=== PATIENT | female | born 2000 | race African-American/Black ===

== ENCOUNTER 2020-05-17 12:49 | Outpatient (REF) | payer OTHER, SELFPAY | END 2020-05-17 12:50 | disposition home or self-care (01) | LOC: HO.LAB 12:49 | PROVIDERS: Visit Provider Internal Medicine | DX: Z20.828 Contact with and (suspected) exposure to other viral communicable diseases (principal) | CPT/HCPCS: U0003 ==

== ENCOUNTER 2020-07-04 10:55 | Outpatient (REF) | payer OTHER, SELFPAY | END 2020-07-04 10:56 | disposition home or self-care (01) | LOC: HO.LAB 10:55 | PROVIDERS: Visit Provider Internal Medicine | DX: Z20.822 Contact with and (suspected) exposure to COVID-19 (principal) | CPT/HCPCS: 36415; C9803; U0003 ==

== ENCOUNTER 2020-07-14 14:41 | Emergency (ER) | payer OTHER, SELFPAY ==
[2020-07-14 14:50] VITALS: BP 102/58; PULSE 80; RESP 18; TEMP 37.1; O2SAT 100; BMI 30.2
[2020-07-14 15:24] LABS: Glucose Urine UA NEG (NEG); Leukocyte Esterase Urine NEG (NEG); Nitrite Urine NEG (NEG); Specific Gravity - Urine >= 1.030 (1.005-1.025); Urine Blood 1+ (NEG); Urine Ketones NEG (NEG); Urine Protein NEG (NEG-TRACE)
[2020-07-14 15:28] LABS: Appearance Urine CLOUDY; Color Urine YELLOW; UPreg QC Valid YES; Urine Pregnancy NEGATIVE (NEGATIVE)
[2020-07-14 15:34] LABS: Bacteria Urine 1+ /LPF; Mucus Urine 1+ /LPF; RBC Urine 0-2 /HPF (0); Squamous Epithelial Cell Urine 2+ /LPF
[2020-07-14 15:49] LABS: MANUAL DIFF FLAG NO
[2020-07-14 15:52] LABS: Basophils Percent Auto 0.3 % (0-2); Eosinophils Absolute Auto 0.1 X10*3/uL (0.0-0.4); Eosinophils Percent Auto 0.5 % (0-4); Hematocrit 37.8 % (37-47); Hemoglobin 11.8 g/dl (12.0-16.0); Imm Gran Abs Auto 0.03 X10*3/uL (0.00-0.03); Imm Gran Pct Auto 0.3 % (0.0-0.4); Lymphocytes Absolute Auto 2.6 X10*3/uL (1.2-4.9); Lymphocytes Percent Auto 24.9 % (20-40); Mean Corpuscular HGB Conc 31.2 g/dl (31.0-35.0); Mean Corpuscular Hemoglobin 25.6 pg (27.0-33.0); Mean Platelet Volume 11.4 fL (9.4-12.3); Monocytes Absolute Auto 0.5 X10*3/uL (0.1-1.2); Monocytes Percent Auto 4.7 % (2-11); Neutrophils Absolute Auto 7.3 X10*3/uL (2.0-8.3); Neutrophils Percent Auto 69.3 % (45-73); Platelet Count 286 X10*3/uL (160-400); Red Blood Count 4.61 X10*6/uL (4.20-5.50); Red Cell Distribution Width 13.2 % (11.0-16.0); White Blood Count 10.6 X10*3/uL (4.8-10.8)
[2020-07-14 16:22] LABS: Alanine Aminotransferase 16 U/L (0-31); Albumin Level 4.1 g/dL (3.5-5.0); Alkaline Phosphatase 98 U/L (39-117); Anion Gap 11 (12-20); Aspartate Amino Transferase 22 U/L (5-31); Bilirubin Total 0.9 mg/dL (0.0-1.0); Blood Urea Nitrogen 9 mg/dL (9-16); Calcium 8.4 mg/dL (8.4-10.2); Carbon Dioxide 25 mmol/L (22-29); Chloride 108 mmol/L (96-108); Creatinine Clr Calc Pharmacy 83.5; Estimated Glomerular Filt Rate > 60; Glucose Random 85 mg/dL (60-115); Lipase 11 U/L (8-78); Potassium 4.1 mmol/l (3.3-5.1); Sodium 140 mmol/L (135-145); Total Protein 7.1 g/dL (6.5-8.0)
--- NOTE | 2020-07-14 16:57 | ED.ABDPAIN ---
HPI - Abdominal Pain General Chief Complaint: Abdominal Pain Stated Complaint: stomach issues Time Seen by Provider: 07/14/20 16:47 Source: patient Mode of arrival: ambulatory Limitations: no limitations History of Present Illness HPI narrative: 19 y/o female with no medical history is presenting with intermittent epigastric pain for the last 4 days. Worse with food and when she 1st wakes up in the morning. She has been taking TUMS without relief. She denies nausea, vomiting, diarrhea, fever, chills, SOB, fever, chest pain or cough. She denies bloody BM's. She has had normal periods, denies . MD elicited complaint: abdominal pain Pertinent past history: none Onset (ago): day(s) (4) Pain Consistency: intermittent and now resolved Location: epigastric Related Data Previous Rx's Medication Instructions Recorded omeprazole 40 mg PO DAILY 14 Days #14 cap 07/14/20 Allergies Allergy/AdvReac Type Severity Reaction Status Date / Time shrimp [SHRIMP] Allergy Unknown ITCHING Unverified 03/03/20 16:42 Review of Systems Review of Systems Constitutional: No Fever, No Chills ENT/Mouth: No sore throat, No Rhinorrhea, No Swallowing Difficulty Cardiovascular: No Chest Pain, No SOB Respiratory: No Cough, No Sputum Gastrointestinal: No Nausea, No Vomiting, No Diarrhea, +abdominal Pain Genitourinary: No Dysuria, No Urinary Frequency, No Hematuria Musculoskeletal: No Myalgias Neuro: No Weakness, No Numbness, No Dizziness, No Headache Heme/Lymph: No Bruising, No Lymphadenopathy Endocrine: No Polyuria, No Polydipsia Physical Exam Vital Signs: Vital Signs: Last Vital Signs Temp 98.7 F 07/14/20 14:50 Pulse 80 07/14/20 14:50 Resp 18 07/14/20 14:50 BP 102/58 L 07/14/20 14:50 Pulse Ox 100 07/14/20 14:50 Body Mass Index 30.2 Appearance: Alert. Oriented X3. No acute distress. Eyes: Pupils equal, round and reactive to light. ENT: Pharynx normal. Neck: Normal inspection. Neck supple. CVS: Normal heart rate and rhythm. Pulses normal. Respiratory: No respiratory distress. Breath sounds normal. Abdomen: Soft and nontender. +BS x4, no rebound or guarding. Skin: Skin warm and dry. Normal skin color. Normal skin turgor. No rashes. Extremities: No lower extremity edema. Neuro: Oriented X 3. No motor deficit. No sensory deficit. Course Course Course Narrative: 19 y/o healthy female presenting with intermittent epigastric pain x4 days. Labs are unremarkable. She has NO pain at this time. Exam is benign. She is likely experiencing gastritis. Will start on PPI and have her f/u with GI for further management. She has been counseled on gastritis and management. She is stable for discharge. Patient agrees with plan. MDM - Abdominal Pain Differential Diagnosis Differential diagnosis: Likely abdominal pain, constipation, gastroenteritis, gastritis, pancreatitis and peptic ulcer disease Lab Data Result diagrams: 07/14/20 15:43 07/14/20 15:43 Labs: Lab Results 07/14/20 07/14/20 07/14/20 Range/Units 15:10 15:43 15:43 WBC 10.6 (4.8-10.8) X10*3/uL RBC 4.61 (4.20-5.50) X10*6/uL Hgb 11.8 L (12.0-16.0) g/dl Hct 37.8 (37-47) % MCV 82.0 (80-98) fL MCH 25.6 L (27.0-33.0) pg MCHC 31.2 (31.0-35.0) g/dl RDW 13.2 (11.0-16.0) % Plt Count 286 (160-400) X10*3/uL MPV 11.4 (9.4-12.3) fL Immature Gran % (Auto) 0.3 (0.0-0.4) % Neut % (Auto) 69.3 (45-73) % Lymph % (Auto) 24.9 (20-40) % [place] % (Auto) 4.7 (2-11) % Eos % (Auto) 0.5 (0-4) % Baso % (Auto) 0.3 (0-2) % Lymph # (Auto) 2.6 (1.2-4.9) X10*3/uL [place] # (Auto) 0.5 (0.1-1.2) X10*3/uL Eos # (Auto) 0.1 (0.0-0.4) X10*3/uL Baso # (Auto) 0.0 (0.0-0.2) X10*3/uL Abs Immat Gran (auto) 0.03 (0.00-0.03) X10*3/uL Absolute Neuts (auto) 7.3 (2.0-8.3) X10*3/uL Absolute Nucleated RBC 0.000 (0.0-0.012) X10*3/uL Nucleated RBC % (auto) 0.0 (0.0-0.2) /100WBC Hold Blue Top SEE NOTE Sodium (135-145) mmol/L Potassium (3.3-5.1) mmol/l Chloride (96-108) mmol/L Carbon Dioxide (22-29) mmol/L Anion Gap (12-20) BUN (9-16) mg/dL Creatinine (0.5-1.4) mg/dL Estim Creat Clear Calc Estimated GFR Random Glucose (60-115) mg/dL Calcium (8.4-10.2) mg/dL Total Bilirubin (0.0-1.0) mg/dL AST (5-31) U/L ALT (0-31) U/L Alkaline Phosphatase (39-117) U/L Total Protein (6.5-8.0) g/dL Albumin (3.5-5.0) g/dL Lipase (8-78) U/L Urine Color YELLOW Urine Appearance CLOUDY Urine pH 6.0 (5.0-8.0) Ur Specific [place] >= 1.030 H (1.005-1.025) Urine Protein NEG (NEG-TRACE) MG/DL Urine Glucose (UA) NEG (NEG) MG/DL Urine Ketones NEG (NEG) MG/DL Urine Blood 1+ H (NEG) Urine Nitrite NEG (NEG) Ur Leukocyte Esterase NEG (NEG) Urine RBC 0-2 (0) /HPF Urine WBC 1-4 (0-4) /HPF Ur Squamous Epith Cells 2+ /LPF Urine Bacteria 1+ /LPF Urine Mucus 1+ /LPF Urine Test NEGATIVE (NEGATIVE) 07/14/20 Range/Units 15:43 WBC (4.8-10.8) X10*3/uL RBC (4.20-5.50) X10*6/uL Hgb (12.0-16.0) g/dl Hct (37-47) % MCV (80-98) fL MCH (27.0-33.0) pg MCHC (31.0-35.0) g/dl RDW (11.0-16.0) % Plt Count (160-400) X10*3/uL MPV (9.4-12.3) fL Immature Gran % (Auto) (0.0-0.4) % Neut % (Auto) (45-73) % Lymph % (Auto) (20-40) % [place] % (Auto) (2-11) % Eos % (Auto) (0-4) % Baso % (Auto) (0-2) % Lymph # (Auto) (1.2-4.9) X10*3/uL [place] # (Auto) (0.1-1.2) X10*3/uL Eos # (Auto) (0.0-0.4) X10*3/uL Baso # (Auto) (0.0-0.2) X10*3/uL Abs Immat Gran (auto) (0.00-0.03) X10*3/uL Absolute Neuts (auto) (2.0-8.3) X10*3/uL Absolute Nucleated RBC (0.0-0.012) X10*3/uL Nucleated RBC % (auto) (0.0-0.2) /100WBC Hold Blue Top Sodium 140 (135-145) mmol/L Potassium 4.1 (3.3-5.1) mmol/l Chloride 108 (96-108) mmol/L Carbon Dioxide 25 (22-29) mmol/L Anion Gap 11 L (12-20) BUN 9 (9-16) mg/dL Creatinine 0.74 (0.5-1.4) mg/dL Estim Creat Clear Calc 83.5 Estimated GFR > 60 Random Glucose 85 (60-115) mg/dL Calcium 8.4 (8.4-10.2) mg/dL Total Bilirubin 0.9 (0.0-1.0) mg/dL AST 22 (5-31) U/L ALT 16 (0-31) U/L Alkaline Phosphatase 98 (39-117) U/L Total Protein 7.1 (6.5-8.0) g/dL Albumin 4.1 (3.5-5.0) g/dL Lipase 11 (8-78) U/L Urine Color Urine Appearance Urine pH (5.0-8.0) Ur Specific [place] (1.005-1.025) Urine Protein (NEG-TRACE) MG/DL Urine Glucose (UA) (NEG) MG/DL Urine Ketones (NEG) MG/DL Urine Blood (NEG) Urine Nitrite (NEG) Ur Leukocyte Esterase (NEG) Urine RBC (0) /HPF Urine WBC (0-4) /HPF Ur Squamous Epith Cells /LPF Urine Bacteria /LPF Urine Mucus /LPF Urine Test (NEGATIVE) Critical Care Time Critical Care Time Critical Care Time: No Discharge Plan Discharge Clinical Impression: Gastritis Qualifiers: Gastritis type: unspecified gastritis Chronicity: acute Gastritis bleeding: without bleeding Qualified Code(s): K29.00 - Acute gastritis without bleeding Patient Disposition: Home, Self-Care Instructions: Gastritis (ED) Additional Instructions: Your lab workup today was unremarkable. Take the prescribed medical for probable gastritis. Take Pepto Bismol and TUMS as needed. Avoid spicy foods and food high in acid. Avoid alcohol and NSAIDs like Motrin and Aleve. Follow up with the GI doctor for further workup. Prescriptions: New omeprazole 40 mg capsule,delayed release(DR/EC) 40 mg PO DAILY 14 Days Qty: 14 RF: 0 Referrals: Malcolm Vargas [Physician] - 2 days (gastritis ) [facility] Past Medical History Attestation statement: The following information was validated with the patient. Medical History No known health problems Social History Social History Advance Directives: No Advance Directives Information Provided: Yes
== END 2020-07-14 17:09 | disposition home or self-care (01) ==
PROVIDERS: Emergency Provider Emergency Medicine
DX: K29.00 Acute gastritis without bleeding (principal)
CPT/HCPCS: 36415; 80053; 81001; 81025; 83690; 85025; 99283

== ENCOUNTER 2020-08-30 12:46 | Outpatient (REF) | payer OTHER, SELFPAY | END 2020-08-30 12:47 | disposition home or self-care (01) | LOC: HO.LAB 12:46 | PROVIDERS: Visit Provider Internal Medicine | DX: Z20.822 Contact with and (suspected) exposure to COVID-19 (principal) | CPT/HCPCS: 36415; C9803; U0003; U0005 ==

== ENCOUNTER 2021-06-17 10:57 | Outpatient (REF) | payer OTHER, SELFPAY ==
[2021-06-17 11:32] LABS: Binax Internal Control QC Valid; Binax Lot number: 9864; Binax Now Covid-19 Ag Positive (Negative)
== END 2021-06-17 10:58 | disposition home or self-care (01) ==
LOC: HO.LAB 10:57
PROVIDERS: Visit Provider Internal Medicine
DX: Z20.822 Contact with and (suspected) exposure to COVID-19 (principal)
CPT/HCPCS: 36415; C9803

== ENCOUNTER 2022-04-24 18:21 | Emergency (ER) | payer OTHER, SELFPAY ==
[2022-04-24 20:23] VITALS: BP 113/63; PULSE 61; RESP 16; TEMP 36.9; O2SAT 99; BMI 30.2
--- NOTE | 2022-04-24 23:00 | ED_ITS ---
HPI - Dental/Oral General Chief complaint: Dental/Oral Stated complaint: Dental swelling Time Seen by Provider: 04/24/22 22:57 Source: patient Mode of arrival: ambulatory Limitations: no limitations History of Present Illness HPI Narrative: 21-year-old female here with left-sided facial swelling and pain for 3 days. No fevers or chills. Related Data Previous Rx's Medication Instructions Recorded omeprazole 40 mg capsule,delayed 40 mg PO DAILY 14 days #14 caps 07/14/20 release clindamycin HCl 150 mg capsule 150 mg PO TID #21 caps 04/24/22 Allergies Allergy/AdvReac Type Severity Reaction Status Date / Time shrimp [SHRIMP] Allergy Unknown ITCHING Unverified 03/03/20 16:42 Review of Systems Review of Systems: Yes all other systems are reviewed and are negative Constitutional: Constitutional: Reports no additional constitutional complaints, Denies body ache(s), Denies chills, Denies fever(s), Denies headache(s) and Denies weakness Eyes: Eyes: Reports no additional eye complaints and Denies change in vision ENT: Reports system reviewed and no additional complaints, except as documented, Denies dizziness, Reports facial pain, Denies headache(s), Denies nasal congestion, Denies nasal discharge and Denies neck pain Cardiovascular: Cardiovascular: Reports no additional cardiovascular complaints, Denies chest pain, Denies leg edema and Denies dyspnea Respiratory: Respiratory: Reports no additional respiratory complaints, Denies cough and Denies dyspnea Gastrointestinal: Gastrointestinal: Reports no additional gastrointestinal complaints, Denies abdominal pain, Denies diarrhea, Denies nausea and Denies vomiting Genitourinary: Genitourinary: Reports no additional female genitourinary complaints and Denies urinary incontinence Musculoskeletal: Musculoskeletal: Reports no additional musculoskeletal complaints, Denies back pain, Denies arthralgias, Denies joint swelling, Denies neck pain, Denies numbness and Denies tingling Integumentary/Breasts: Skin/Breast: Reports system reviewed and no additional complaints, except as docu and Denies rash Neurologic: Reports system reviewed and no additional complaints, except as documented, Denies Abnormal speech present, Denies dizziness, Denies headache(s), Denies numbness, Denies tingling and Denies weakness [facility] Past Medical History Attestation statement: The following information was validated with the patient. Source: old records reviewed and nursing notes reviewed Medical History No known health problems Physical Exam Vital Signs: Vital Signs: Last Vital Signs Temp 98.5 F 04/24/22 20:23 Pulse 61 04/24/22 20:23 Resp 16 04/24/22 20:23 BP 113/63 04/24/22 20:23 Pulse Ox 99 04/24/22 20:23 O2 Del Method 04/24/22 20:23 BMI result Body Mass Index 30.2 Const: General: cooperative, healthy appearing, comfortable and no acute di stress Orientation/consciousness: patient oriented x3 Limitations: no limitations HEENT: Other: No trismus. Mild left facial swelling over the left upper dental region. To the gum line there is redness, swelling and discomfort with no palpable abscess. Head: Yes normal to inspection Ears: hearing grossly normal bilaterally and TM's normal bilaterally General nose exam: Normal external nose present Face and sinus: Yes normal facial exam Mouth: Normal oral and palatal mucosa present Throat: Yes posterior oropharynx normal, Yes tonsils normal and Yes uvula midline Eyes: General: appearance normal, both eyes and all related structures Pupils: Equal, round and reactive pupils present Neck: Neck: Yes normal visual inspection, Yes full ROM, Yes no lymphadenopathy and Yes no meningeal signs Chest: Chest palpation & inspection: normal inspection of the chest Resp: Effort & Inspection: normal respiratory effort Auscultation: clear to auscultation bilaterally Cardio: Rate: regular rate Rhythm: regular rhythm Peripheral pulses: Peripheral pulses 2+ throughout GI: Inspection: Yes normal to inspection Palpation (GI): Soft to palpation and nontender Auscultation: normal bowel sounds Back/Spine/Pelvis: Thoracic/Lumbar Spine: thoracic and lumbar spine normal to inspection Skin: General skin exam: no rashes or lesions noted Neuro: General: patient oriented x3, no meningeal signs, no focal motor deficits and normal sensation to monofilament Cranial nerves: Yes Equal, round and reactive pupils present Cognition (Neuro): normal cognition Speech: No Abnormal speech present Gait exam (Neuro): Normal gait present Motor exam (neuro): 5/5 motor strength present throughout Extrem: General: Yes normal to inspection MDM - Dental/Oral MDM Narrative Medical decision making narrative: 21-year-old female here with swelling, redness to the left upper gum line with some local left-sided facial swelling. No obvious abscess. Likely some mild cellulitis secondary gum infection. Patient placed on oral antibiotics. Recommend saltwater gargles, soft foods, Motrin or Tylenol as needed. Reviewed worrisome signs and symptoms of when to return to the emergency room. Comfortable discharge home. Medical Records Attestation: I reviewed the patient's medical records. Lab Data Attestation: I reviewed the patient's lab results. Discharge Plan Discharge Clinical Impression: Dental infection Patient Disposition: Home, Self-Care Instructions: Dental Abscess (ED) Additional Instructions: Saltwater gargle Motrin or Tylenol for any pain or fever Soft food You may consider topical Orajel Avoid smoking Follow-up with dentist Prescriptions: New clindamycin HCl 150 mg capsule 150 mg PO TID Qty: 21 0RF No Action omeprazole 40 mg capsule,delayed release(DR/EC) 40 mg PO DAILY 14 Days Qty: 14 0RF
== END 2022-04-24 23:29 | disposition home or self-care (01) ==
PROVIDERS: Emergency Provider Emergency Medicine
DX: K04.7 Periapical abscess without sinus (principal)
CPT/HCPCS: 99282; 99283

== ENCOUNTER 2022-10-17 15:59 | Emergency (ER) | payer OTHER, SELFPAY ==
[2022-10-17 16:36] VITALS: BP 93/29; PULSE 67; RESP 18; TEMP 36.6; O2SAT 98; BMI 29.7
--- NOTE | 2022-10-17 18:34 | PC.NURSE ---
This RN at bedside for Tetanus. Pt reports recent Tetanus within 2 years.
--- NOTE | 2022-10-17 19:43 | ED.GENADULT ---
HPI - General Adult General Chief complaint: Wound/Laceration Stated complaint: thumb lac w/ megan blade Time Seen by Provider: 10/17/22 19:33 Source: patient, RN notes reviewed and old records reviewed Mode of arrival: ambulatory Limitations: no limitations History of Present Illness HPI narrative: 22 year old female presents for evaluation of laceration to the left thumb. Patient reports that she accidentally cut her left thumb with a ?megan knife. ? She had previously told the nurse that her tetanus was 2 years ago but she believes this was incorrect and feels that she needs her tetanus updated She denies any other injuries This laceration happened a few hours ago Bleeding is controlled Related Data Previous Rx's Medication Instructions Recorded omeprazole 40 mg capsule,delayed 40 mg PO DAILY 14 days #14 caps 07/14/20 release clindamycin HCl 150 mg capsule 150 mg PO TID #21 caps 04/24/22 Allergies Allergy/AdvReac Type Severity Reaction Status Date / Time shrimp [SHRIMP] Allergy Unknown ITCHING Verified 10/17/22 16:39 Review of Systems Integumentary/Breasts: Comments: Laceration to left thumb PMFSH Past Medical History Medical History No known health problems Social History Social History Advance Directives: No Advance Directives Information Provided: No Physical Exam ED Vital Signs: Vital Signs - 24 hr 10/17/22 16:36 Temperature 98 F Pulse Rate 67 Respiratory Rate 18 Blood Pressure 93/29 L Pulse Oximetry 98 Oxygen Delivery Method Room Air BMI result Body Mass Index 29.7 Const General: healthy appearing, comfortable, no acute distress, alert and awake Nutritional Appearance: well nourished Orientation/consciousness: patient oriented x3 Skin Other: 2 cm partial-thickness linear laceration to the ulnar side of the left thumb abutting the nail plate General skin exam: no rashes or lesions noted and elasticity normal Neuro General: patient oriented x3 Cranial nerves: Yes Bilaterally intact EOM present Cognition (Neuro): normal cognition Medications Administered Discontinued Medications Generic Name Dose Route Start Last Admin Trade Name Freq PRN Reason Stop Dose Admin Diphtheria/Tetanus/Acell Pertussis 0.5 ml 10/17/22 17:55 10/17/22 18:41 Diphth,Pertus(Acell),Tet Adult 0.5 Ml Syringe IM 10/17/22 17:56 Not Given .ONCE ONE Lidocaine HCl 2 ml 10/17/22 19:42 10/17/22 19:57 Lidocaine Hcl 1 % Mpf 2 Ml Vial INFILTRATI 10/17/22 19:43 2 ml ONCE ONE Administration Procedures Laceration Laceration 1: Site: hand (left thumb) Side (If applicable): left Size (cm): 2 Description: linear Depth: simple, single layer Local Anesthetic: lidocaine 1% Amount of anesthesia used (mL): 1 Skin layer closed with: nylon Size (cm): 5-0 Number of sutures: 2 Technique: simple, interrupted Medical Decision Making Medical Decision Making MDM Narrative: Patient has a small laceration that will require couple of sutures to close. Tetanus will be updated. Will clean the wound prior to closure. Differential Diagnosis Laceration Skin tear Puncture wound Abrasion Discharge Plan Discharge Clinical Impression: Laceration of left thumb Patient Disposition: Home, Self-Care Instructions: Finger Laceration (ED) Additional Instructions: Your sutures can be removed in 7-10 days Keep the area clean and dry, but you may apply topical antibiotic Your tetanus shot was updated today Prescriptions: No Action omeprazole 40 mg capsule,delayed release(DR/EC) 40 mg PO DAILY 14 Days Qty: 14 0RF clindamycin HCl 150 mg capsule 150 mg PO TID Qty: 21 0RF
[2022-10-17] MEDS: Lidocaine HCl 1 % MPF 2 ML VIAL INFILTRATI (19:57)
== END 2022-10-17 20:19 | disposition home or self-care (01) ==
PROVIDERS: Emergency Provider Internal Medicine
DX: S61.012A Laceration without foreign body of left thumb without damage to nail, initial encounter (principal)
CPT/HCPCS: 12001; 99283; 99284

== ENCOUNTER 2022-12-17 16:01 | Emergency (ER) | payer OTHER, SELFPAY ==
[2022-12-17 16:03] VITALS: BP 104/50; PULSE 65; RESP 18; TEMP 36.8; O2SAT 99; BMI 27.9
--- NOTE | 2022-12-17 16:07 | ED.GENADULT ---
HPI - General Adult General Chief complaint: Headache Stated complaint: left sided headache Time Seen by Provider: 12/17/22 22:23 Source: patient, RN notes reviewed and old records reviewed Mode of arrival: ambulatory Limitations: no limitations History of Present Illness HPI narrative: 22-year-old female presents for left-sided headache. Patient reports that she gets headaches approximately once a month This feels similar to her previous headaches but seems to be worse in intensity The pain radiates to her left ear Patient reports that headache started 2 days ago She reports associated nausea but no vomiting Denies any trauma to the head or neck She has ibuprofen and Tylenol without any improvement in her headaches today Patient reports that she is taking ?an old antibiotic that was left over from a tooth infection. ? Related Data Previous Rx's Medication Instructions Recorded omeprazole 40 mg capsule,delayed 40 mg PO DAILY 14 days #14 caps 07/14/20 release clindamycin HCl 150 mg capsule 150 mg PO TID #21 caps 04/24/22 [id number] 1 cap PO Q8H PRN headache #15 caps 12/17/22 50 mg-300 mg-40 mg capsule (Fioricet) Allergies Allergy/AdvReac Type Severity Reaction Status Date / Time shrimp [SHRIMP] Allergy Unknown ITCHING Verified 10/17/22 16:39 Review of Systems Constitutional: Constitutional: Reports as per HPI, Denies chills, Denies fatigue and Denies fever(s) ENT: Reports otalgia Gastrointestinal: Gastrointestinal: Denies vomiting Endocrine: Endocrine: Denies fatigue PMFSH Past Medical History Medical History No known health problems Social History Social History Alcohol intake: never Smoked in Last 30 Days: No Use of substances other than those prescribed or required for medical reasons: Yes Substance Use Type: Marijuana Substance Use Frequency: Occasionally Advance Directives: No Advance Directives Information Provided: Yes Patient : No Physical Exam ED Vital Signs: Vital Signs - 24 hr 12/17/22 16:03 12/17/22 21:44 Temperature 98.3 F 97.3 F Pulse Rate 65 67 Respiratory Rate 18 16 Blood Pressure 104/50 L 100/56 L Pulse Oximetry 99 100 Oxygen Delivery Method Nasal Cannula Room Air BMI result Body Mass Index 27.9 Const General: healthy appearing, comfortable, no acute distress, alert and awake Nutritional Appearance: well nourished Orientation/consciousness: patient oriented x3 HENMT Head: Yes normocephalic and Yes atraumatic Ears: external ears normal, TM's normal bilaterally and EAC's normal Eyes Eyelids: Yes eyelids normal Conjunctivae: conjunctivae normal Sclerae: sclerae normal Corneas: corneas normal Pupils: Equal, round and reactive pupils present EOM: EOMs intact bilaterally Neck Neck: Yes full ROM Resp Effort & Inspection: normal respiratory effort, able to speak in complete sentences and not labored Skin General skin exam: no rashes or lesions noted and elasticity normal Neuro General: patient oriented x3 Cranial nerves: Yes CN's II-XII intact bilaterally, Yes Equal, round and reactive pupils present and Yes Bilaterally intact EOM present Cognition (Neuro): normal cognition Extrem Other: Moving all extremities well without any obvious deformities Course Course Course Narrative: RmE: 22 yold female presents to the ED for left ear pain and headache. Patient denies any trauama, nausea, vomitting, or neuro deficits. Medical Decision Making Medical Decision Making [facility] Narrative: A 22-year-old female with no significant past medical history presents for evaluation of headache. The patient reports that she does get intermittent headaches approximately once a month. She has no neurologic deficits, no significant findings on exam. I explained the patient that she should stop taking the antibiotic that she reports she was taking. I discussed potential imaging of her brain and she reports that she has never had any CT imaging or MRI imaging of her brain and has chronic headaches. She declines this at this time which I feel is appropriate as she has no neurologic deficits. I did encourage fall there PCP regarding this Differential Diagnosis Acute headache Migraine headache Tension headache Cluster headache Otitis media Otitis externa Discharge Plan Discharge Clinical Impression: Headache Patient Disposition: Home, Self-Care Instructions: Acute Headache (ED) Additional Instructions: Use ibuprofen as needed for your pain. You may use Fioricet as needed for more severe headaches. Follow-up with your primary doctor. If you continue to have headache, you should have some imaging of your head either a CT scan or an MRI to rule out other pathology Return for new or worsening symptoms Prescriptions: New [id number]-[id number] [Fioricet] 50-300-40 mg capsule 1 cap PO Q8H PRN (Reason: headache) Qty: 15 0RF No Action omeprazole 40 mg capsule,delayed release(DR/EC) 40 mg PO DAILY 14 Days Qty: 14 0RF clindamycin HCl 150 mg capsule 150 mg PO TID Qty: 21 0RF Stand Alone Forms: Work/School Release
[2022-12-17 21:44] VITALS: BP 100/56; PULSE 67; RESP 16; TEMP 36.3; O2SAT 100
== END 2022-12-17 23:01 | disposition home or self-care (01) ==
PROVIDERS: Emergency Provider Emergency Medicine
DX: R51.9 Headache, unspecified (principal)
CPT/HCPCS: 99283; 99284